=== PATIENT | male | born 1945 | race African-American/Black ===

== ENCOUNTER 2019-11-29 17:43 | Emergency (ER) | payer OTHER ==
[~2019-11-29] VITALS: Ht 185.4 cm; Wt 74.4 kg
[2019-11-29 18:05] VITALS: BP 136/87
--- NOTE | 2019-11-29 18:15 | NUR ---
ED Nurse Note: PT CAME IN DUE TO LACERATION ON HIS LEFT LOWER CREWS. PT WAS REPORTED TO TRIPPED AND MISSTEPPED ON A BUS STEP. AAO X4, AMBULATORY AND NOTED A LARGE LACERATION 2-3M CM WITH MILD BLEEDING. STATES THAT HE IS TAKING XARELTO.
[2019-11-29] MEDS ORDERED: Hydrogen Peroxide 473ml Bottle TOPIC ONE (18:45)
--- NOTE | 2019-11-29 18:50 | NUR ---
ED Nurse Note: CLEANSED WOUND WITH NS AND HYDROGEN PEROXIDE AND PATTED DRY.
--- NOTE | 2019-11-29 18:50 | NUR ---
ED Nurse Note: BLOOM CONVEYOR OPERATOR AT THE BED SIDE FOR XRAY.
--- NOTE | 2019-11-29 19:18 | NUR ---
HAND-OFF: Report given to MARICRUZ GARRIDO.
--- NOTE | 2019-11-29 19:42 | Emergency Room Report ---
History of Present Illness General Chief Complaint: Laceration Source: Medical Record Present Illness HPI 74-year-old male with history of having a pacemaker and currently on Xarelto here complaining of a laceration left lower extremity. Patient missed a step and hit the left lower tib-fib to the ground and scraped it against the ground and has been having a bleeding laceration since. Patient was brought in by paramedics. Is up-to-date with tetanus shot reports that he last got it 6 months ago. Has full range of motion affected side. Denies tingling and numbness. Denies other injuries, head injury or loss of consciousness. Rating pain 10 out of 10 without radiation. Allergies: Coded Allergies: No Known Allergies (Unverified , 11/29/19) Patient History Past Medical History: see triage record Past Surgical History: unable to obtain Pertinent Family History: none Immunizations: UTD Reviewed Nursing Documentation: PMH: Agreed; PSxH: Agreed Nursing Documentation-PMH Past Medical History: No History, Except For Hx Cardiac Problems: Yes - afib Hx Hypertension: Yes Hx Gastrointestinal Problems: Yes - enlarged prostate, GERD Review of Systems All Other Systems: negative except mentioned in HPI Physical Exam Vital Signs Date Time Temp Pulse Resp B/P (MAP) Pulse Ox O2 Delivery O2 Flow Rate FiO2 11/29/19 18:05 97.3 64 18 136/87 (103) 97 Room Air Sp02 EP Interpretation: reviewed, normal General Appearance: no apparent distress, alert, GCS 15, non-toxic Head: normocephalic, atraumatic Eyes: bilateral eye normal inspection, bilateral eye PERRL ENT: hearing grossly normal, normal pharynx, no angioedema, normal voice Neck: full range of motion, supple/symm/no masses Respiratory: chest non-tender, lungs clear, normal breath sounds, no rhonchi, no respiratory distress, no retraction, no wheezing, speaking full sentences Cardiovascular #1: regular rate, rhythm, no edema, no gallop, no murmur, normal capillary refill Cardiovascular #2: 2+ dorsalis pedis (R), 2+ dorsalis pedis (L) Gastrointestinal: normal bowel sounds, non tender, soft, non-distended, no guarding, no rebound Rectal: deferred Genitourinary: no CVA tenderness Musculoskeletal: back normal, no calf tenderness, non-tender Neurologic: alert, motor strength/tone normal, oriented x3, sensory intact, responsive, speech normal Psychiatric: judgement/insight normal, memory normal, mood/affect normal, no suicidal/homicidal ideation Skin: laceration - superficial lac left distal tib fib Lymphatic: no adenopathy Procedures Laceration/Wound Repair Laceration/Wound Repair : Consent: Verbal Wound Location: lower extremity - left distal tib fib Wound's Depth, Shape: superficial Wound Length (cm): 2 Wound Explored: contaminated Irrigated w/ Saline (ccs): 10 Anesthesia: Lidocaine w/ Epi Volume Anesthetic (ccs): 5 Wound Debrided: minimal Wound Repaired With: sutures Suture Size/Type: 4:0, proline Number of Sutures: 12 Layer Closure?: Yes Sterile Dressing Applied?: Yes Splint Applied?: No Sling Applied?: No Patient Tolerated: Well Complications: None Medical Decision Making Diagnostic Impression: Primary Impression: Laceration of left lower leg ER Course 74-year-old male with history of having a pacemaker and currently on Xarelto here complaining of a laceration left lower extremity. Patient missed a step and hit the left lower tib-fib to the ground and scraped it against the ground and has been having a bleeding laceration since. Patient was brought in by paramedics. Is up-to-date with tetanus shot reports that he last got it 6 months ago. Has full range of motion affected side. Denies tingling and numbness. Denies other injuries, head injury or loss of consciousness. Rating pain 10 out of 10 without radiation. Ddx considered but are not limited to : Superficial laceration, deep laceration , tendon involvement with laceration, laceration with foreign body Vital signs: are WNL, pt. is afebrile H&PE are most consistent with: Superficial laceration of left lower leg ORDERS: Left tib-fib x-ray, Augmentin, mupirocin ointment, Tylenol ED INTERVENTIONS: Wound closure DISCHARGE: At this time pt. is stable for d/c to home. Will provide printed patient care instructions, and any necessary prescriptions. Care plan and follow up instructions have been discussed with the patient prior to discharge. Sutures to be removed in 7 to 10 days, take medication as directed, antibiotics were given due to patient's low immune system as well as duration the local wound was left open. If worsening symptoms return to the emergency room Other X-Ray Diagnostic Results Other X-Ray Diagnostic Results : X-Ray ordered: Left tib-fib # of Views/Limited Vs Complete: 2 View Indication: Pain EP Interpretation: Yes CHEN Xray: Interpretation reviewed, by supervising MD, and agrees with findings. Interpretation: no dislocation, no soft tissue swelling, no fractures Impression: No acute disease Electronically Signed by: Nacho Sanon PA-C Last Vital Signs Date Time Temp Pulse Resp B/P (MAP) Pulse Ox O2 Delivery O2 Flow Rate FiO2 11/29/19 18:05 97.3 64 18 136/87 97 Room Air Disposition: HOME, SELF-CARE Condition: Stable Scripts Mupirocin (MUPIROCIN) 15 Gm Cream..g. 1 APPLIC TOPIC THREE TIMES A DAY, #15 GM Prov: Nacho Childress 11/29/19 Acetaminophen* (TYLENOL EXTRA STRENGTH*) 500 Mg Tablet 500 MG ORAL Q8H PRN for Prn Headache/Temp > 101, #30 TAB 0 Refills Prov: Nacho Childress 11/29/19 Amoxicillin/Potassium Clav 875-125* (AUGMENTIN 875-125 TABLET*) 1 Each Tablet 1 TAB ORAL TWICE A DAY for 7 Days, #14 TAB Prov: Nacho Childress 11/29/19 Patient Instructions: Laceration Care, Adult Additional Instructions: Take medication as directed, follow-up with your primary care provider, sutures to be removed in 7 to 10 days. Worsening symptoms return to the emergency room Nacho Childress Nov 29, 2019 19:42
[2019-11-29] MEDS ORDERED: MUPIROCIN15 GM TOPIC (19:43)
[2019-11-29] MEDS ORDERED: TYLENOL EXTRA500 MG ORAL (19:43)
[2019-11-29] MEDS ORDERED: AUGMENTIN 875-1 EAC1 ORAL (19:43)
[2019-11-29 20:00] VITALS: BP 131/74
--- NOTE | 2019-11-29 20:00 | NUR ---
ER DISCHARGE NOTE: Patient is cleared to be discharged per ERMD, pt is aox4, on room air, with stable vital signs. pt was given dc and prescription instructions, pt was able to verbalize understanding, pt id band removed without complications. pt is able to ambulate with steady gait. pt took all belongings.
[2019-11-29 20:10] VITALS: BP 131/74
--- NOTE | 2019-11-30 10:32 | Diagnostic Imaging Report ---
Indication: Laceration left lower chin Technique: 2 views of the left tibia and fibula Comparison: Findings: No acute fractures. No dislocations. No radiopaque foreign body. Or a slight slight irregularity of the anterior soft tissues on the lateral view noted, but no definite tissue gas Impression: No acute process
== END 2019-11-29 20:10 | disposition home or self-care (01) ==
LOC: EMR 19:42
DX: S81.812A Laceration without foreign body, left lower leg, initial encounter (principal); Z95.0 Presence of cardiac pacemaker; Z79.01 Long term (current) use of anticoagulants; K21.9 Gastro-esophageal reflux disease without esophagitis; I10 Essential (primary) hypertension; W19.XXXA Unspecified fall, initial encounter; Y92.9 Unspecified place or not applicable
CPT/HCPCS: 12001; 73590; Z7502; 99283

== ENCOUNTER 2019-12-12 11:05 | Emergency (ER) | payer OTHER ==
[~2019-12-12] VITALS: Ht 185.4 cm; Wt 72.6 kg
[~2019-12-12 11:05] MED LIST: AUGMENTIN 875-1 EAC1 ORAL; MUPIROCIN15 GM TOPIC; TYLENOL EXTRA500 MG ORAL
[2019-12-12 11:23] VITALS: BP 122/82
--- NOTE | 2019-12-12 11:23 | NUR ---
ED Nurse Note: Pt ambulated to ed c/o right bray suture removal down 28 days ago. pt denies pain. NAD noted.
[2019-12-12] MEDS ORDERED: CLINDAMYCIN HC300 MG ORAL (11:30)
--- NOTE | 2019-12-12 11:36 | NUR ---
Note nataliya in EDM - 12/12/19 at 1157 by PDEFELIBERTOON ER DISCHARGE NOTE: Patient is cleared to be discharged per ERMD, pt is aox4, on room air, with stable vital signs. Suture removed, pt tolerated well. NAD noted. pt was given dc and prescription instructions, pt was able to verbalize understanding, pt id band removed. pt is able to ambulate with steady gait. pt took all belongings.
[2019-12-12 11:56] VITALS: BP 118/76
--- NOTE | 2019-12-12 11:57 | NUR ---
ER DISCHARGE NOTE: Patient is cleared to be discharged per ERMD, pt is aox4, on room air, with stable vital signs. Suture removed, pt tolerated well. NAD noted. pt was given dc and prescription instructions, pt was able to verbalize understanding, pt id band removed. pt is able to ambulate with steady gait. pt took all belongings.
[2019-12-12] MEDS ORDERED: Clindamycin 150mg cap ORAL SCH (12:00)
--- NOTE | 2019-12-21 13:57 | Emergency Room Report ---
History of Present Illness General Chief Complaint: Wound Recheck/Suture Removal Source: Patient Present Illness HPI Patient is a 74-year-old male who presents to the ER for suture removal. Patient states that sutures were placed on his left lower leg November 29. He denies any fever or chills. He does not think he has been on antibiotics. He does not complain of pain to the region. He denies any new trauma. Allergies: Coded Allergies: No Known Allergies (Unverified , 11/29/19) Patient History Reviewed Nursing Documentation: PMH: Agreed; PSxH: Agreed Nursing Documentation-PM Past Medical History: No History, Except For Hx Cardiac Problems: Yes - afib Hx Hypertension: Yes Hx Gastrointestinal Problems: Yes - enlarged prostate, GERD Review of Systems All Other Systems: negative except mentioned in HPI Physical Exam Sp02 EP Interpretation: reviewed, normal General Appearance: no apparent distress, alert, GCS 15, non-toxic Head: normocephalic, atraumatic Eyes: bilateral eye normal inspection, bilateral eye PERRL ENT: hearing grossly normal, normal pharynx, no angioedema, normal voice Neck: full range of motion, supple/symm/no masses Respiratory: chest non-tender, lungs clear, normal breath sounds, speaking full sentences Cardiovascular #1: regular rate, rhythm, no edema Gastrointestinal: normal bowel sounds, non tender, soft, non-distended, no guarding, no rebound Rectal: deferred Genitourinary: normal inspection, no CVA tenderness Musculoskeletal: back normal, calf tenderness, gait/station normal, other - L anterior lower leg sutures in place with slight surrounding erythema, no discharge or crepitus Neurologic: alert, motor strength/tone normal, oriented x3, sensory intact, responsive, speech normal Psychiatric: judgement/insight normal, memory normal, mood/affect normal, no suicidal/homicidal ideation Lymphatic: no adenopathy Medical Decision Making Diagnostic Impression: Primary Impression: Cellulitis Additional Impression: Visit for suture removal ER Course Sutures removed without complication. Patient started on antibiotics for cellulitis. After discussing risks and benefits of further diagnostics, treatment plans, as well as indications for and risks of admission, the patient is agreeable to being discharged home. I have explained that their evaluation and treatment in the emergency department today is an important step towards them achieving better health but that their evaluation today is not intended to replace further evaluation and treatment by a physician in their local clinic. I have explained that while the current findings suggest no immediate life threatening emergency they will require further evaluation and treatment by a physician of their choice in their area. They understand that it will be necessary for them to review the final reports of their ED visit with their clinic physician. We have reviewed indications for return to the Emergency Department. I have explained that additional time may need to pass and/or additional testing as an outpatient may be necessary before a definitive diagnosis can be made. They tell me they are willing to follow up as instructed within the timeframe I recommend. They appear to understand what we discussed. Additionally they understand that if they are unable to be seen by an outpatient physician they are welcome, and in fact should, return to the Emergency Department for a repeat evaluation. The patient is stable at time of discharge. Disposition: HOME, SELF-CARE Condition: Stable Scripts Clindamycin Hcl (CLINDAMYCIN HCL) 300 Mg Capsule 450 MG ORAL THREE TIMES A DAY for 10 Days, #21 CAP Prov: Flor Owusu M.D. 12/12/19 Referrals: HEALTH CARE OR,REFERRING (PCP) [facility] [place] [facility] Patient Instructions: Cellulitis, [id number], Suture Removal, Care After Flor Owusu M.D. Dec 21, 2019 13:57
== END 2019-12-12 11:56 | disposition home or self-care (01) ==
LOC: EMR 11:15
DX: Z48.02 Encounter for removal of sutures (principal)
CPT/HCPCS: 99281